=== PATIENT | male | born 1950 | race Caucasian/White ===

== ENCOUNTER 2016-10-05 18:32 | Emergency (ER) | payer OTHER, MEDICARE ==
--- NOTE | 2016-10-05 18:45 | ER Document Report ---
ED Extremity Problem, Lower - General Chief Complaint: Knee Pain Stated Complaint: KNEE PAIN Time Seen by Provider: 10/05/16 18:39 Mode of Arrival: Stretcher Information source: Patient TRAVEL OUTSIDE OF THE U.[place]. IN LAST 30 DAYS: No - HPI Patient complains to provider of: Injury, Pain, Swelling Location: Knee Occurred: Just prior to arrival Where: Public place Onset/Duration: Sudden Quality of pain: Achy Severity: Moderate Pain Level: 3 Context: Fell Recent injury: Yes Exacerbated by: Movement Relieved by: Nothing Notes: Patient is a 66-year-old male who is currently incarcerated, he was brought to the emergency room by EMS with law enforcement present, for complaints of trip and fall causing an injury to his right hip and right knee, he denies a head injury or loss of consciousness, although EMS reports that he was found on the floor with his head wedged between the bathtub and the toilet, patient denies any headache, no neck pain, no numbness or tingling, no chest pain or shortness of breath - Related Data Allergies/Adverse Reactions: No Known Allergies Allergy (Verified 03/29/15 01:00) Past Medical History - General Information source: Patient - Social History Smoking Status: Unknown if Ever Smoked Family History: Arthritis, CAD, CVA, Hyperlipidemia, Hypertension - Past Medical History Cardiac Medical History: Reports: Hx Coronary Artery Disease, Hx Heart Attack - 2007, Hx Hypercholesterolemia, Hx Hypertension - Goes to a local urgent care for his medicine Denies: Hx Atrial Fibrillation, Hx Congestive Heart Failure, Hx Peripheral Vascular Disease, Hx Heart Murmur Pulmonary Medical History: Reports: Hx Bronchitis, Hx Pneumonia Denies: Hx Tuberculosis Neurological Medical History: Reports: Hx Cerebrovascular Accident Endocrine Medical History: Reports: Hx Diabetes Mellitus Type 2 Renal/ Medical History: Reports: Hx Kidney Stones - 1979, 1986. Denies: Hx Benign Prostatic Hyperplasia, Hx End Stage Renal Disease, Hx Peritoneal Dialysis Malignancy Medical History: Reports Hx Skin Cancer Musculoskeltal Medical History: Reports Hx Musculoskeletal Deformity, Reports Hx Musculoskeletal Trauma Past Surgical History: Reports: Hx Cardiac Catheterization, Hx Coronary Stent. Denies: Hx Appendectomy, Hx Bowel Surgery, Hx Cholecystectomy, Hx Coronary Artery Bypass Graft, Hx Gastric Bypass Surgery, Hx Herniorrhaphy, Hx Pacemaker, Hx Tonsillectomy - Immunizations Immunizations up to date: Yes Hx Diphtheria, Pertussis, Tetanus Vaccination: Yes - 2013 Hx Pneumococcal Vaccination: 12/21/11 Review of Systems - Review of Systems Constitutional: No symptoms reported EENT: No symptoms reported Cardiovascular: No symptoms reported Respiratory: No symptoms reported Gastrointestinal: No symptoms reported Genitourinary: No symptoms reported Male Genitourinary: No symptoms reported Musculoskeletal: See HPI Skin: No symptoms reported Hematologic/Lymphatic: No symptoms reported Neurological/Psychological: No symptoms reported -: Yes All other systems reviewed and negative Physical Exam - Vital signs Vitals: Temp Pulse Resp BP Pulse Ox 98.3 F 75 18 111/60 100 10/05/16 18:42 10/05/16 18:42 10/05/16 18:42 10/05/16 18:42 10/05/16 18:42 Interpretation: Normal - General General appearance: Appears well, Alert - HEENT Head: Normocephalic, Atraumatic Eyes: Normal Pupils: PERRL - Respiratory Respiratory status: No respiratory distress Chest status: Nontender Breath sounds: Normal Chest palpation: Normal - Cardiovascular Rhythm: Regular Heart sounds: Normal auscultation Murmur: No - Abdominal Inspection: Normal Distension: No distension Bowel sounds: Normal Tenderness: Nontender Organomegaly: No organomegaly - Back Back: Normal, Nontender - Extremities General upper extremity: Normal inspection, Nontender, Normal color, Normal ROM , Normal temperature General lower extremity: Normal color, Normal temperature. No: Aiden's sign Hip: Tender - Patient reports tenderness to palpate over lateral hip and thigh, no deformity, distal sensation and motor is intact Knee: Tender - Tender to palpate over patella of the right knee, patient reports pain with range of motion testing, distal sensation and motor is intact with 2+ DP pulses - Neurological Neuro grossly intact: Yes Cognition: Normal Orientation: AAOx4 Gael Coma Scale Eye Opening: Spontaneous [place] Coma Scale Verbal: Oriented Gael Coma Scale Motor: Obeys Commands [place] Coma Scale Total: 15 Speech: Normal Motor strength normal: LUE, RUE, LLE, RLE Sensory: Normal - Psychological Associated symptoms: Normal affect, Normal mood - Skin Skin Temperature: Warm Skin Moisture: Dry Skin Color: Normal Course - Re-evaluation Re-evalutation: 10/05/16 20:09 Imaging shows no evidence of injury, patient was able to ambulate with assistance, he was discharged with instructions for follow-up and advised to return if any additional concerns - Vital Signs Vital signs: Temp Pulse Resp BP Pulse Ox 98.3 F 75 18 111/60 100 10/05/16 18:42 10/05/16 18:42 10/05/16 18:42 10/05/16 18:42 10/05/16 18:42 - Diagnostic Test Radiology reviewed: Image reviewed, Reports reviewed Discharge - Discharge Clinical Impression: Contusion of knee, right Qualifiers: Encounter type: initial encounter Qualified Code(s): S80.01XA - Contusion of right knee, initial encounter Condition: Stable Disposition: HOME, SELF-CARE Instructions: Ice & Elevation ([facility]), Suspected Internal Knee Injury ([facility]), Sprained Knee ([facility]) Additional Instructions: Follow up with your primary care provider in one to 2 days. Return to the emergency room immediately if symptoms worsen or any additional concerns.
--- NOTE | 2016-10-05 19:43 | RADIOLOGY REPORT (SQ) ---
EXAM DESCRIPTION: HIP RIGHT AP/LATERAL COMPLETED DATE/TIME: 10/05/2016 7:30 pm REASON FOR STUDY: fall COMPARISON: None. NUMBER OF VIEWS: Two views. TECHNIQUE: AP pelvis and additional frog-leg view of the right hip. LIMITATIONS: None. FINDINGS: MINERALIZATION: Normal. RIGHT HIP: No fracture or dislocation. No worrisome bone lesions. LEFT HIP: No fracture or dislocation. No worrisome bone lesions. PUBIS AND ISCHIUM: No fracture. PELVIS: No fracture. SACRUM: No fracture or dislocation. No worrisome bone lesions. LOWER LUMBAR SPINE: No fracture or dislocation. No worrisome bone lesions. No significant disc disea se. SOFT TISSUES: No findings. OTHER: No other significant finding. IMPRESSION: NEGATIVE STUDY OF THE RIGHT HIP. NO RADIOGRAPHIC EVIDENCE OF ACUTE INJURY. TECHNICAL DOCUMENTATION: JOB ID: [id number] [employer]- All Rights Reserved
--- NOTE | 2016-10-05 19:44 | RADIOLOGY REPORT (SQ) ---
EXAM DESCRIPTION: KNEE RIGHT 3 VIEWS COMPLETED DATE/TIME: 10/05/2016 7:30 pm REASON FOR STUDY: fall COMPARISON: None. NUMBER OF VIEWS: Three views TECHNIQUE: AP, lateral, and sunrise patella radiographic images acquired of the right knee. LIMITATIONS: None. FINDINGS: MINERALIZATION: Normal. BONES: No acute fracture or dislocation. No worrisome bone lesions. JOINT: No effusion. SOFT TISSUES: No soft tissue swelling. No radio-opaque foreign body. OTHER: No other significant finding. IMPRESSION: NEGATIVE STUDY OF THE RIGHT KNEE. NO RADIOGRAPHIC EVIDENCE OF ACUTE INJURY. TECHNICAL DOCUMENTATION: JOB ID: [id number] [employer]- All Rights Reserved
[2016-10-05] MEDS ORDERED: IBUPROFEN 600 MG TABLET PO ONE (19:52)
[2016-10-05 20:33] VITALS: BP 129/72
== END 2016-10-05 20:05 | disposition home or self-care (01) ==
LOC: ER 18:32
DX: S80.01XA Contusion of right knee, initial encounter (principal); M25.561 Pain in right knee; W19.XXXA Unspecified fall, initial encounter
CPT/HCPCS: 99283; 73502; 73562; A9270

== ENCOUNTER 2017-09-10 15:35 | Observation (INO) | payer MEDICARE, OTHER ==
--- NOTE | 2017-09-10 16:14 | ER Document Report ---
ED General - General Mode of Arrival: Ambulatory Information source: Patient TRAVEL OUTSIDE OF THE U.S. IN LAST 30 DAYS: No <REID UMANZOR - Last Filed: 09/10/17 17:23> <JUAN BAIN - Last Filed: 09/10/17 18:26> - General Chief Complaint: Other Stated Complaint: ALTERED MENTAL STATUS Time Seen by Provider: 09/10/17 15:50 Notes: 67-year-old male presenting today with complaints of possible altered mental status. [facility] and has no place to go according to EMS. Patient had a CVA while incarcerated and has residual right- sided weakness and is unable to stand; [facility]. Patient has no complaints at this time. (REID UMANZOR) - Related Data Allergies/Adverse Reactions: No Known Allergies Allergy (Verified 03/29/15 01:00) Past Medical History - General Information source: Patient - Social History Smoking Status: Unknown if Ever Smoked Cigarette use (# per day): No Frequency of alcohol use: None Drug Abuse: None Lives with: Family Family History: Arthritis, CAD, CVA, Hyperlipidemia, Hypertension - Past Medical History Cardiac Medical History: Reports: Hx Coronary Artery Disease, Hx Heart Attack - 2007, Hx Hypercholesterolemia, Hx Hypertension - Goes to a local urgent care for his medicine Pulmonary Medical History: Reports: Hx Bronchitis, Hx Pneumonia Neurological Medical History: Reports: Hx Cerebrovascular Accident Endocrine Medical History: Reports: Hx Diabetes Mellitus Type 2 Renal/ Medical History: Reports: Hx Kidney Stones - 1979, 1986 Malignancy Medical History: Reports Hx Skin Cancer Musculoskeltal Medical History: Reports Hx Musculoskeletal Deformity, Reports Hx Musculoskeletal Trauma Past Surgical History: Reports: Hx Cardiac Catheterization, Hx Coronary Stent - Immunizations Immunizations up to date: Yes Hx Diphtheria, Pertussis, Tetanus Vaccination: Yes - 2013 Hx Pneumococcal Vaccination: 12/21/11 <REID UMANZOR - Last Filed: 09/10/17 17:23> Review of Systems - Review of Systems Constitutional: No symptoms reported EENT: No symptoms reported Cardiovascular: No symptoms reported Respiratory: No symptoms reported Gastrointestinal: No symptoms reported Genitourinary: No symptoms reported Male Genitourinary: No symptoms reported Musculoskeletal: No symptoms reported Skin: No symptoms reported Hematologic/Lymphatic: No symptoms reported Neurological/Psychological: No symptoms reported -: Yes All other systems reviewed and negative <REID UMANZOR - Last Filed: 09/10/17 17:23> Physical Exam <REID UMANZOR - Last Filed: 09/10/17 17:23> <JUAN BAIN - Last Filed: 09/10/17 18:26> - Vital signs Vitals: Temp Pulse Resp BP Pulse Ox 98.3 F 99 16 107/60 94 09/10/17 15:51 09/10/17 15:51 09/10/17 15:51 09/10/17 15:51 09/10/17 15:51 - Notes Notes: Physical Exam: General: Alert, appears frail and older than stated age. HEENT: Normocephalic. Atraumatic. PERRL. Extraocular movements intact. Oropharynx clear. Neck: Supple. Non-tender. Respiratory: No respiratory distress. Clear and equal breath sounds bilaterally. Cardiovascular: Regular rate and rhythm. Abdominal: Normal Inspection. Non-tender. No distension. Normal Bowel Sounds. Back: Non-tender. No deformity or step off. Extremities: Moves all four extremities. Upper extremities: Normal inspection. Normal ROM. Lower extremities: Normal inspection. No edema. Normal ROM. Neurological: Normal cognition. AAOx4. Slow to respond. Right sided hemiparesis. Psychological: Normal affect. Normal Mood. Skin: Superficial abrasion over right mello. (ERNAMARTHAREID) Course - Laboratory Result Diagrams: 09/10/17 16:52 09/10/17 16:52 <REID UMANZOR - Last Filed: 09/10/17 17:23> - Laboratory Result Diagrams: 09/10/17 16:52 09/10/17 16:52 - Diagnostic Test Radiology reviewed: Image reviewed - EKG Interpretation by Hi EKG shows normal: Sinus rhythm Rate: Normal Rhythm: NSR - Unspecific ST-T wave abnormalities <JUAN BAIN - Last Filed: 09/10/17 18:26> - Re-evaluation Re-evalutation: 09/10/17 18:20 Patient will be admitted for clinical signs of dehydration and altered mental status concerns for normal pressure hydrocephalus and hyperthyroidism. (JUAN BAIN) - Vital Signs Vital signs: Temp Pulse Resp BP Pulse Ox 98.3 F 99 16 107/60 94 09/10/17 15:51 09/10/17 15:51 09/10/17 15:51 09/10/17 15:51 09/10/17 15:51 - Laboratory Laboratory results interpreted by me: 09/10/17 09/10/17 09/10/17 16:52 16:52 16:52 RBC 4.10 L Hgb 12.0 L Hct 35.8 L BUN 32 H Glucose 136 H POC Glucose Ammonia < 8.7 L TSH Urine Urobilinogen Urine Ascorbic Acid Salicylates < 1.0 L Acetaminophen < 10 L 09/10/17 09/10/17 09/10/17 16:52 16:54 17:22 RBC Hgb Hct BUN Glucose POC Glucose 147 H Ammonia TSH 0.04 L Urine Urobilinogen 2.0 H Urine Ascorbic Acid 40 H Salicylates Acetaminophen Discharge <REID UMANZOR - Last Filed: 09/10/17 17:23> - Discharge Admitting Provider: [facility] Admitted: IMCU <JUAN BAIN - Last Filed: 09/10/17 18:26> - Discharge Clinical Impression: Dehydration, Acute encephalopathy, Hyperthyroidism Disposition: ADMITTED INPATIENT Scribe Attestation: 09/10/17 16:36 I personally performed the services described in the documentation, reviewed and edited the documentation which was dictated to the scribe in my presence, and it accurately records my words and actions. (REID UMANZOR) Scribe Documentation - Scribe Written by Nathaly:: Nathaly Guevara, 09/10/2017 1726 acting as scribe for :: Dino <REID UMANZOR - Last Filed: 09/10/17 17:23>
[2017-09-10 17:10] LABS: ABSOLUTE EOSINOPHILS # (AUTO) 0.1 10^3/uL (0.0-0.6); ABSOLUTE LYMPHOCYTES (AUTO) 2.4 10^3/uL (0.5-4.7); ABSOLUTE MONOCYTES (AUTO) 0.6 10^3/uL (0.1-1.4); ABSOLUTE NEUT (AUTO) 4.8 10^3/uL (1.7-8.2); BASOPHILS % (AUTO) 0.5 % (0-2); EOSINOPHILS % (AUTO) 1.2 % (0-6); HEMATOCRIT 35.8 % (37.9-51.0); LYMPHOCYTES % (AUTO) 30.3 % (13-45); MEAN CORPUSCULAR HEMOGLOBIN 29.4 pg (27.0-33.4); MEAN CORPUSCULAR HGB CONC 33.6 g/dL (32.0-36.0); MEAN CORPUSCULAR VOLUME 87 fl (80-97); MONOCYTES % (AUTO) 7.1 % (3-13); PLATELET COUNT 240 10^3/uL (150-450); RED CELL DISTRIBUTION WIDTH 13.2 % (11.5-14.0); SEGMENTED NEUTROPHILS % (AUTO) 60.9 % (42-78); TOTAL CELLS COUNTED % (AUTO) 100 %; WHITE BLOOD COUNT 7.9 10^3/uL (4.0-10.5)
[2017-09-10 17:15] LABS: INTERNATIONAL RATION (INR) 1.03
[2017-09-10 17:33] LABS: ACETAMINOPHEN < 10 ug/mL (10-30); ALANINE AMINOTRANSFERASE 25 U/L (21-72); ALBUMIN 3.6 g/dL (3.5-5.0); ALCOHOL < 10 mg/dL (NONE DETECTED); ALKALINE PHOSPHATASE 78 U/L (38-126); ANION GAP 11 (5-19); ASPARTATE AMINO TRANSFERASE 17 U/L (17-59); BILIRUBIN,DIRECT 0.3 mg/dL (0.0-0.4); BILIRUBIN,TOTAL 0.3 mg/dL (0.2-1.3); BLOOD UREA NITROGEN 32 mg/dL (7-20); CALCIUM 9.5 mg/dL (8.4-10.2); CARBON DIOXIDE 27 mmol/L (22-30); CHLORIDE 107 mmol/L (98-107); GLUCOSE 136 mg/dL (75-110); LIPASE 37.4 U/L (23-300); POTASSIUM 4.6 mmol/L (3.6-5.0); SALICYLATE < 1.0 mg/dL (2.0-20.0); SODIUM 144.5 mmol/L (137-145); TOTAL PROTEIN 6.4 g/dL (6.3-8.2)
--- NOTE | 2017-09-10 17:49 | RADIOLOGY REPORT (SQ) ---
EXAM DESCRIPTION: CT HEAD WITHOUT COMPLETED DATE/TIME: 09/10/2017 4:26 pm REASON FOR STUDY: ams COMPARISON: 2014 TECHNIQUE: Axial images acquired through the brain without intravenous contrast. Images reviewed wi th bone, brain and subdural windows. Additional sagittal and coronal reconstructions were generated. Images stored on PACS. All CT scanners at this facility use dose modulation, iterative reconstruction, and/or weight based d osing when appropriate to reduce radiation dose to as low as reasonably achievable (ALARA). [facility]: Dose Right [facility]: CareDose [facility]: Dose Right [facility]: Teradose 4D [facility]: Into The Gloss RADIATION DOSE: mGy. LIMITATIONS: None. FINDINGS: VENTRICLES: More prominent than expected for degree of atrophy. Suggests normal pressure hydrocephalus. CEREBRUM: No masses. No hemorrhage. No midline shift. Areas of low density in the white matter mos t likely due to chronic micro-vascular ischemic change. No evidence for acute infarction. Old lac[place] ar infarcts. CEREBELLUM: No masses. No hemorrhage. No alteration of density. No evidence for acute infarction. EXTRAAXIAL SPACES: Age-related involutional change. No fluid collections. No masses. ORBITS AND GLOBE: No intra- or extraconal masses. Normal contour of globe without masses. CALVARIUM: No fracture. PARANASAL SINUSES: No fluid or mucosal thickening. SOFT TISSUES: No mass or hematoma. OTHER: No other significant finding. IMPRESSION: CHRONIC CHANGES OF ATROPHY AND MICROVASCULAR ISCHEMIA. Question normal pressure hydrocephalus. NO ACUTE PROCESS. EVIDENCE OF ACUTE STROKE: NO. TECHNICAL DOCUMENTATION: JOB ID: [id number] Quality ID # [id number]: Final reports with documentation of one or more dose reduction techniques (e.g., Au tomated exposure control, adjustment of the mA and/or kV according to patient size, use of iterative reconstruction technique) 2010 [employer]- All Rights Reserved Reading location - IP/workstation name: [email or web address]
--- NOTE | 2017-09-10 17:53 | RADIOLOGY REPORT (SQ) ---
EXAM DESCRIPTION: CHEST SINGLE VIEW COMPLETED DATE/TIME: 09/10/2017 4:25 pm REASON FOR STUDY: ams COMPARISON: 07/04/2015 EXAM PARAMETERS: NUMBER OF VIEWS: One view. TECHNIQUE: Single frontal radiographic view of the chest acquired. RADIATION DOSE: NA LIMITATIONS: None. FINDINGS: LUNGS AND PLEURA: No opacities, masses or pneumothorax. No pleural effusion. MEDIASTINUM AND HILAR STRUCTURES: No masses. Contour normal. HEART AND VASCULAR STRUCTURES: Heart normal in size. Normal vasculature. BONES: No acute findings. HARDWARE: None in the chest. OTHER: No other significant finding. IMPRESSION: NO ACUTE RADIOGRAPHIC FINDING IN THE CHEST. TECHNICAL DOCUMENTATION: JOB ID: [id number] [employer]- All Rights Reserved Reading location - IP/workstation name: [email or web address]
[2017-09-10 18:12] LABS: APPEARANCE,URINE SLIGHTLY-CLOUDY; BILIRUBIN,URINE NEGATIVE (NEGATIVE); CALCIUM OXALATE CRYSTALS,URINE FEW /HPF; COLOR,URINE YELLOW; GLUCOSE, URINE NEGATIVE (NEGATIVE); KETONES,URINE NEGATIVE (NEGATIVE); LEUKOCYTE ESTERASE,URINE NEGATIVE (NEGATIVE); NITRITE,URINE NEGATIVE (NEGATIVE); PROTEIN,URINE NEGATIVE (NEGATIVE); URINE SPECIFIC GRAVITY 1.021
[2017-09-10] MEDS ORDERED: ACETAMINOPHEN 325 MG TABLET PO PRN (18:19)
[2017-09-10 18:32] LABS: URINE AMPHETAMINES SCREEN NEGATIVE; URINE BARBITURATES SCREEN NEGATIVE; URINE BENZODIAZEPINES SCREEN NEGATIVE; URINE COCAINE SCREEN NEGATIVE; URINE MARIJUANA (THC) SCREEN NEGATIVE; URINE METHADONE SCREEN NEGATIVE; URINE PHENCYCLIDINE SCREEN NEGATIVE
[2017-09-10 19:35] LABS: FREE T3 4.52 pg/mL (2.77-5.27); FREE T4 (FREE THYROXINE) 1.36 ng/dL (0.78-2.19)
--- NOTE | 2017-09-10 20:00 | HISTORY AND PHYSICAL E ---
History and Physical NAME: KANNAN ODELL : 1950 AGE: 67Y ADMITTED: 09/10/2017 ROOM: ED03 PRIMARY CARE PROVIDER: Not established. CHIEF COMPLAINT: Confusion. HISTORY OF PRESENT ILLNESS: The patient is a 67-year-old male with a past medical history of previous CVA. The patient presented to the emergency department via EMS due to altered mental status. The patient apparently had had a recent CVA while incarcerated and has residual right-sided weakness and has been unable to stand. The patient apparently was [facility] and the patient was recently released. After this the patient's is in the process of getting a divorce and, therefore, has not cared for the patient. The patient is unable to provide any history and at this time of this dictation EMS report is not available. I am uncertain of the exact circumstances that brought the patient to the hospital or where he was when EMS picked him up. However, the patient is unable to provide me any history. While in the emergency department the patient did have a CT that was suggestive of NPH as the differential as well as possible hyperthyroidism. Given the patient's encephalopathic state and his inability to provide any history he has been referred to the hospitalist for admission and management. PAST MEDICAL HISTORY: According to previous medical records includes; 1. Diabetes mellitus type 2. 2. History of tobacco dependency. 3. Hypertension. 4. Cerebrovascular disease. ALLERGIES: No known drug allergies. HOME MEDICATIONS: None. SOCIAL HISTORY: The patient has a recorded history of heavy tobacco use, as well as alcohol use. The patient is unable to give a surrogate decision maker as his is estranged. The patient at this date appears homeless. FAMILY MEDICAL HISTORY: Unobtainable. REVIEW OF SYSTEMS: Unobtainable. PHYSICAL EXAMINATION: GENERAL: On examination the patient is a frail appearing, 67-year-old male who will awaken and groans, but does not provide any history. He does not appear to be distressed, does appear comfortable. VITAL SIGNS: Temperature is 98.3, pulse 99, respirations 16, blood pressure 107/60, oxygen saturation is 94% on room air. SKIN: Pale and very dry; no obvious rash. He is not diaphoretic. HEENT: The patient vigorously closes his eyes, unable to appreciate americo. There is no evidence of JVP. Mucous membranes appear dry. Unable to appreciate thyromegaly. CARDIOVASCULAR: Heart is regular. There is no rub. CHEST: Diminished, symmetrical, unlabored. Evidence of barrel chest. ABDOMEN: Soft, it does not appear to be tender. Bowel sounds are present. Unable to appreciate organomegaly. EXTREMITIES: No clubbing, cyanosis, or edema. Pedal pulses +1 noted bilaterally. PSYCHIATRIC: The patient is unable to cooperate. NEUROLOGIC: The patient is not fully cooperative. However, when I asked him to squeeze my hands, his right hand appears flaccid. The left hand does have a very strong hip hop performers. Unable to get the patient to perform lower extremity examination. DIAGNOSTICS: Lab values are as follows - hematology obtained on 09/10/2017; WBC 7.9, hemoglobin is 12.0, hematocrit is 38.5, platelet count is 240,000. Coagulation obtained on 09/10/2017; PT is 14.0, INR is 1.03. Chemistry obtained on 09/10/2017; sodium 144, potassium 4.6, chloride is 107, carbon dioxide 27, BUN 32, creatinine is 1.7, glucose 136, calcium is 9.5, magnesium is 3.1, bilirubin 0.3, AST 17, ALT is 25, alk-phos 78, total protein 6.4, albumin 3.6, lipase 37.6. T4 is 0.04. Urinalysis obtained on 09/10/2017; color yellow, appearance slightly cloudy, pH is 5.0, specific gravity 1.021, protein negative, glucose negative, ketones negative, occult blood negative, nitrite negative, bilirubin negative, urobilinogen is 2, leukocyte esterase is negative, WBC is 2. Head CT obtained on 09/10/2017 is suggestive of chronic changes in vascular and microvascular ischemia, possible NPH. Chest x-ray obtained on 09/10/2017 reveals no evidence of acute disease. IMPRESSION AND PLAN: 1. Acute encephalopathy. Unable to get a history on this at this point. This is perplexing given the patient is poorly responsive, currently awaiting tox screen. We will also add B12 and proceed with ischemic workup to include MRI given the patient's history of cerebrovascular disease. Will start the patient on aspirin and statin therapy, so forth, and follow. 2. Cerebrovascular disease, as per #1. 3. Low TSH. We will add on T3, T4, and treat accordingly. 4. Abnormal CT of the head. It was suggestive as NPH as one of differentials. Given the patient's history of heavy alcohol use this could just be atrophy. However, possible MRI imaging will give better view of this. 5. Hypertension. The patient actually appears hypotensive and has evidence of dehydration. Therefore, will hydrate and monitor. 6. Diabetes mellitus type 2. Will place the patient on sliding scale coverage. CODE STATUS: The patient is a full code. DISPOSITION: Depending on the patient's symptomatology and diagnostic findings will reevaluate in the a.m. Will admit the patient to inpatient IMCU as the patient's expected length of stay will surpass two midnights. TIME SPENT: On this admission including assessment, plan, physical examination, attended to patient education, review of records is 35 minutes. DICTATING PHYSICIAN: CHRISTIANO HANKINS [id number] PHY#: [id number] ID: [id number] JOB#: [id number] ACCT: [id number] cc:RADHA CARPENTER M.D. >
[2017-09-10] MEDS: ATORVASTATIN CALCIUM 40 MG TABLET PO SCH (22:24)
[2017-09-10] MEDS: HEPARIN SOD (PORCINE) 5,000 UNIT/ML 1 ML SYRINGE SUBCUT SCH (22:28)
[2017-09-10] MEDS: NORMAL SALINE 1000 ML 1,000 ML IV PRN (22:31)
[2017-09-11] MEDS ORDERED: GLUCAGON,HUMAN RECOMB 1 MG INJ SUBCUT PRN (01:17)
[2017-09-11] MEDS ORDERED: DEXTROSE 40% GEL 15 GM TUBE PO PRN ×2 (01:17)
[2017-09-11] MEDS ORDERED: DEXTROSE 50%-WATER 25 GM/50 ML DISP.SYRIN IV PRN ×2 (01:17)
[2017-09-11] MEDS: HEPARIN SOD (PORCINE) 5,000 UNIT/ML 1 ML SYRINGE SUBCUT SCH ×3 (05:14→21:07)
--- NOTE | 2017-09-11 06:06 | EKG REPORT ---
SEVERITY:- ABNORMAL ECG - SINUS RHYTHM BORDERLINE INFERIOR Q WAVES , CONSIDER OLD INFERIOR FL : Confirmed by: Donovan Becker MD 11-Sep-2017 06:05:55
[2017-09-11] MEDS: ASPIRIN 81 MG TABLET, ENT COATED PO SCH (09:18)
--- NOTE | 2017-09-11 12:47 | PDOC PROGRESS REPORT ---
Subjective Progress Note for:: 09/11/17 Subjective:: She is a 67 years old male patient brought by EMS for altered mental status. Patient is a recently released from incarceration. I seen him resting in bed comfortably is not impairing her renal form of distress. He is awake alert and oriented. Reason For Visit: ENCEPHALOPATHY Physical Exam Vital Signs: Temp Pulse Resp BP Pulse Ox 98.6 F 80 14 112/49 L 97 09/11/17 07:55 09/11/17 08:00 09/11/17 08:00 09/11/17 08:00 09/11/17 08:00 Intake & Output 09/10/17 09/11/17 09/12/17 06:59 06:59 06:59 Intake Total 500 Output Total 0 Balance 500 Weight 59.6 kg General appearance: PRESENT: no acute distress Head exam: PRESENT: atraumatic Mouth exam: PRESENT: moist Neck exam: ABSENT: carotid bruit, JVD, lymphadenopathy, thyromegaly Cardiovascular exam: PRESENT: RRR. ABSENT: diastolic murmur, rubs, systolic murmur GI/Abdominal exam: PRESENT: normal bowel sounds, soft. ABSENT: distended, guarding, mass, organolmegaly, rebound, tenderness Neurological exam: PRESENT: alert, awake, oriented to time, oriented to situation Results Impressions: Chest X-Ray 09/10/17 15:51 IMPRESSION: NO ACUTE RADIOGRAPHIC FINDING IN THE CHEST. Head CT 09/10/17 15:51 IMPRESSION: CHRONIC CHANGES OF ATROPHY AND MICROVASCULAR ISCHEMIA. Question normal pressure hydrocephalus. NO ACUTE PROCESS. EVIDENCE OF ACUTE STROKE: NO. Assessment & Plan - Diagnosis (1) Altered mental status Qualifiers: Altered mental status type: disorientation Qualified Code(s): R41.0 - Disorientation, unspecified Is this a current diagnosis for this admission?: Yes Plan: Possibly due to metabolic encephalopathy. Patient is currently stable and is at his baseline (2) Type 2 diabetes mellitus Is this a current diagnosis for this admission?: Yes Plan: Stable continue current regimen. (3) Hypertension Is this a current diagnosis for this admission?: Yes Plan: Continue home meds. (4) History of CVA (cerebrovascular accident) Is this a current diagnosis for this admission?: Yes Plan: Stable.
--- NOTE | 2017-09-11 12:57 | Physician Advisory Note ---
Physician Advisor ProgressNote .: Pursuant to the plan for [facility], I have reviewed the medical record for this patient. Physician Advisor Statement: Please consider documenting, if you agree: 1. "Rt hemiparesis" (dominant, or nondominant, side?) 2. "dysphagia with water" 3. likely type/cause encephalopathy ( "metabolic encephalopathy due to dehydration/ "? "toxic encephalopathy due to [substance]"? ...) & how he is different from his [likely] baseline (as we learn more about that....) 4. Medical necessity: VERY IMPORTANT to make it clear today the CLINICAL reasons pt still needs to be in hospital, what CONCERNS attending - besides his homelessness & inability to care for self. (see below) Status: 67yo Medicare pt w/CAD/prior CO & stent, HTN, HLD, DM-2, recent CVA w/ Rt dom/non-dom hemiparesis, kidney stones, skin CA, tobacco dependence, prior EtOH, presented w/[facility] with slowness to respond, inability to give any hx himself ("will awaken and groan, but not give any hx", "pt poorly responsive"), not fully cooperative w/exam, with evident dehydration, residual Rt hemiparesis , very low TSH, anemia, CT head suggestive of possible NPH. He is incontinent of urine. - So far, all of this sounds most appropriate for Obs status (& if he simply has no place to go, needing [facility] care, and that is why he is being kept here, then he should not be Inpatient.) However, nursing has documented he failed nursing water swallow screen, so is currently NPO, needing IVF. Additionally, today they report "small amt of bloody d/c from urethra". Today, nursing documents pt is "oriented to person & place", though "confused", speech "delayed", thinking "disorganized & disoriented", cough intermittent - so he must be speaking some this AM, & may have some aspiration. (see #4 above) - If any of this, or other clinical issues, concern attending, who documents accordingly, then appropriate for Inpatient status. Thanks! CK
[2017-09-11] MEDS: NORMAL SALINE 1000 ML 1,000 ML IV PRN (15:12)
[2017-09-11] MEDS: ATORVASTATIN CALCIUM 40 MG TABLET PO SCH (21:07)
[2017-09-12] MEDS: HEPARIN SOD (PORCINE) 5,000 UNIT/ML 1 ML SYRINGE SUBCUT SCH ×3 (05:09→22:02)
[2017-09-12] MEDS: ASPIRIN 81 MG TABLET, ENT COATED PO SCH (09:37)
[2017-09-12] MEDS: NORMAL SALINE 1000 ML 1,000 ML IV PRN (09:37)
[2017-09-12] MEDS ORDERED: LISINOPRIL 5 MG TABLET PO ONE (11:00)
[2017-09-12] MEDS ORDERED: CHOLECALCIFEROL (D3) 1,000 UNIT TABLET PO ONE (11:00)
--- NOTE | 2017-09-12 11:33 | PDOC PROGRESS REPORT ---
Subjective Subjective:: I seen patient resting in bed comfortably. He is awake alert is not in pain or any form of distress. Patient brought by EMS for altered mental status currently patient is at his baseline. This morning I reached his brother and I discussed the patient's condition and I told him patient is ready for discharge but he said there is no place to send him and he directs me to contact his sister who is in charge. I tried to get hold of patient's sister but she does not answer. Reason For Visit: ALTERED MENTAL STATUS Physical Exam Vital Signs: Temp Pulse Resp BP Pulse Ox 98.7 F 58 L 14 101/78 100 09/12/17 07:28 09/12/17 07:28 09/12/17 07:28 09/12/17 07:28 09/12/17 07:28 Intake & Output 09/11/17 09/12/17 09/13/17 06:59 06:59 06:59 Intake Total 500 2251 Output Total 0 Balance 500 2251 Weight 59.6 kg 59.4 kg General appearance: PRESENT: no acute distress, well-developed, well-nourished Head exam: PRESENT: atraumatic, normocephalic Eye exam: PRESENT: conjunctiva pink, EOMI, PERRLA. ABSENT: scleral icterus Ear exam: PRESENT: normal external ear exam Mouth exam: PRESENT: moist, tongue midline Neck exam: ABSENT: carotid bruit, JVD, lymphadenopathy, thyromegaly Respiratory exam: PRESENT: clear to auscultation earline. ABSENT: rales, rhonchi, wheezes Cardiovascular exam: PRESENT: RRR. ABSENT: diastolic murmur, rubs, systolic murmur Pulses: PRESENT: normal dorsalis pedis pul Vascular exam: PRESENT: normal capillary refill GI/Abdominal exam: PRESENT: normal bowel sounds, soft. ABSENT: distended, guarding, mass, organolmegaly, rebound, tenderness Rectal exam: PRESENT: deferred Extremities exam: PRESENT: full ROM. ABSENT: calf tenderness, clubbing, pedal edema Neurological exam: PRESENT: alert, awake, oriented to person, oriented to place , oriented to time, oriented to situation. ABSENT: motor sensory deficit Psychiatric exam: PRESENT: appropriate affect, normal mood. ABSENT: homicidal ideation, suicidal ideation Skin exam: PRESENT: dry, intact, warm. ABSENT: cyanosis, rash Results Impressions: Chest X-Ray 09/10/17 15:51 IMPRESSION: NO ACUTE RADIOGRAPHIC FINDING IN THE CHEST. Head CT 09/10/17 15:51 IMPRESSION: CHRONIC CHANGES OF ATROPHY AND MICROVASCULAR ISCHEMIA. Question normal pressure hydrocephalus. NO ACUTE PROCESS. EVIDENCE OF ACUTE STROKE: NO. Assessment & Plan - Diagnosis (1) Altered mental status Qualifiers: Altered mental status type: disorientation Qualified Code(s): R41.0 - Disorientation, unspecified Is this a current diagnosis for this admission?: Yes Plan: Possibly due to metabolic encephalopathy. Patient is currently stable and is at his baseline (2) Type 2 diabetes mellitus Is this a current diagnosis for this admission?: Yes Plan: Controlled. I restarted him his home metformin (3) Hypertension Is this a current diagnosis for this admission?: Yes Plan: Continue home meds. (4) History of CVA (cerebrovascular accident) Is this a current diagnosis for this admission?: Yes Plan: Stable.
[2017-09-12] MEDS: LANSOPRAZOLE 15 MG TAB.RAP.DR PO SCH (17:48)
[2017-09-12] MEDS: METFORMIN HCL 500 MG TABLET PO SCH (17:48)
[2017-09-12] MEDS ORDERED: INSULIN LISPRO 100 UNIT/ML 3 ML VIAL SUBCUT PRN (17:52)
[2017-09-12] MEDS: ATORVASTATIN CALCIUM 40 MG TABLET PO SCH (22:02)
[2017-09-12] MEDS: TAMSULOSIN HCL 0.4 MG CAP.SR.24H PO SCH (22:02)
[2017-09-13 05:42] LABS: ANION GAP 8 (5-19); BLOOD UREA NITROGEN 26 mg/dL (7-20); CALCIUM 8.6 mg/dL (8.4-10.2); CARBON DIOXIDE 24 mmol/L (22-30); CHLORIDE 112 mmol/L (98-107); GLUCOSE 88 mg/dL (75-110); POTASSIUM 4.1 mmol/L (3.6-5.0); SODIUM 144.2 mmol/L (137-145)
[2017-09-13] MEDS: HEPARIN SOD (PORCINE) 5,000 UNIT/ML 1 ML SYRINGE SUBCUT SCH ×3 (05:49→21:51)
[2017-09-13] MEDS: LANSOPRAZOLE 15 MG TAB.RAP.DR PO SCH ×2 (05:49→17:36)
[2017-09-13] MEDS: MULTIVITAMIN TABLET PO SCH (09:01)
[2017-09-13] MEDS: LISINOPRIL 5 MG TABLET PO SCH (09:01)
[2017-09-13] MEDS: METFORMIN HCL 500 MG TABLET PO SCH ×2 (09:02→17:36)
[2017-09-13] MEDS: ASPIRIN 81 MG TABLET, ENT COATED PO SCH (09:02)
[2017-09-13] MEDS: CHOLECALCIFEROL (D3) 1,000 UNIT TABLET PO SCH (09:02)
[2017-09-13] MEDS: NORMAL SALINE 1000 ML 1,000 ML IV PRN (09:03)
[2017-09-13] MEDS ORDERED: (PENDING PHARMACY ID) (Metformin Hcl [Metformin Hcl Er] 500 MG) PO SCH (10:00)
[2017-09-13] MEDS ORDERED: (PENDING PHARMACY ID) (Multivitamin [Multivitamins] 1 CAP) PO SCH (10:00)
--- NOTE | 2017-09-13 10:44 | PDOC PROGRESS REPORT ---
Subjective Progress Note for:: 09/13/17 Subjective:: I seen patient resting in bed comfortably. No new complaints or any significant change overnight. Patient is hemodynamically stable and good for discharge with placement is an issue since no family member wanted to accepted him. Reason For Visit: ALTERED MENTAL STATUS Physical Exam Vital Signs: Temp Pulse Resp BP Pulse Ox 98.0 F 54 L 18 104/83 99 09/13/17 08:00 09/13/17 08:00 09/13/17 08:00 09/13/17 08:00 09/13/17 08:00 Intake & Output 09/12/17 09/13/17 09/14/17 06:59 06:59 06:59 Intake Total 2251 2710 Output Total 200 Balance 2251 2710 -200 Weight 59.4 kg 64.9 kg General appearance: PRESENT: no acute distress, mild distress Head exam: PRESENT: atraumatic, normocephalic Neck exam: ABSENT: carotid bruit, JVD, lymphadenopathy, thyromegaly Respiratory exam: PRESENT: accessory muscle use Cardiovascular exam: PRESENT: RRR. ABSENT: diastolic murmur, rubs, systolic murmur GI/Abdominal exam: PRESENT: normal bowel sounds, soft. ABSENT: distended, guarding, mass, organolmegaly, rebound, tenderness Neurological exam: PRESENT: alert, awake Results Laboratory Results: 09/13/17 03:50 09/13/17 03:50 Sodium 144.2 Potassium 4.1 Chloride 112 H Carbon Dioxide 24 Anion Gap 8 BUN 26 H Creatinine 0.65 Est GFR ( Amer) > 60 Est GFR (Non-Af Amer) > 60 Glucose 88 Calcium 8.6 Magnesium 1.8 Impressions: Chest X-Ray 09/10/17 15:51 IMPRESSION: NO ACUTE RADIOGRAPHIC FINDING IN THE CHEST. Head CT 09/10/17 15:51 IMPRESSION: CHRONIC CHANGES OF ATROPHY AND MICROVASCULAR ISCHEMIA. Question normal pressure hydrocephalus. NO ACUTE PROCESS. EVIDENCE OF ACUTE STROKE: NO. Assessment & Plan - Diagnosis (1) Altered mental status Qualifiers: Altered mental status type: disorientation Qualified Code(s): R41.0 - Disorientation, unspecified Is this a current diagnosis for this admission?: Yes Plan: Possibly due to metabolic encephalopathy. Patient is currently stable and is at his baseline (2) Type 2 diabetes mellitus Is this a current diagnosis for this admission?: Yes Plan: Controlled. I restarted him his home metformin (3) Hypertension Is this a current diagnosis for this admission?: Yes Plan: Continue home meds. (4) History of CVA (cerebrovascular accident) Is this a current diagnosis for this admission?: Yes Plan: Stable.
--- NOTE | 2017-09-13 15:05 | RADIOLOGY REPORT (SQ) ---
EXAM DESCRIPTION: CAROTID DOPPLER COMPLETED DATE/TIME: 09/13/2017 2:32 pm REASON FOR STUDY: AMS E11.311 TYPE 2 DIABETES W UNSP DIABETIC RETINOPATHY W MACULA COMPARISON: None. TECHNIQUE: Grayscale ultrasound, Doppler velocity and spectra, and color Doppler images acquired of the extra-cranial carotid and vertebral arteries. Images stored on PACS. LIMITATIONS: None. FINDINGS: RIGHT CAROTID CCA Velocities: 66 centimeters/second ICA Velocities Peak systolic 86 cm/s. End diastolic 18 cm/s. Proximal ICA/CCA peak systolic ratio 1.3. Plaque is present in the distal common carotid and in the carotid bulb and proximal internal carotid. Intimal thickening is present in the common carotid. LEFT CAROTID CCA Velocities: 83 centimeters/second ICA Velocities Peak systolic 97 cm/s. End diastolic 22 cm/s. Proximal ICA/CCA peak systolic ratio 1.2. Plaque is present in the common carotid, carotid bulb, and proximal internal carotid. Intimal thicke flo is present in the common carotid. VERTEBRAL ARTERIES: Antegrade flow. Normal waveforms. SUBCLAVIAN ARTERIES: No finding. OTHER: No other significant finding. IMPRESSION: NO HEMODYNAMICALLY SIGNIFICANT STENOSIS. COMMENT: Quality ID #[id number]: Velocity criteria are extrapolated from the diameter data as defined by t he Society of Radiologists in Ultrasound Consensus Conference. Radiology 2003: 229; 340-346. TECHNICAL DOCUMENTATION: JOB ID: [id number] [employer]- All Rights Reserved Reading location - IP/workstation name: [email or web address]
[2017-09-13] MEDS: ATORVASTATIN CALCIUM 40 MG TABLET PO SCH (21:51)
[2017-09-13] MEDS: TAMSULOSIN HCL 0.4 MG CAP.SR.24H PO SCH (21:51)
[2017-09-14] MEDS: HEPARIN SOD (PORCINE) 5,000 UNIT/ML 1 ML SYRINGE SUBCUT SCH ×3 (05:45→21:14)
[2017-09-14] MEDS: LANSOPRAZOLE 15 MG TAB.RAP.DR PO SCH ×2 (05:45→16:29)
--- NOTE | 2017-09-14 08:54 | ST Inp Modified Barium Swallow ---
Medical Diagnosis - Medical Diagnoses Medical Diagnosis Description & ICD-10 Code(s): acute encephalopathy, dysphagia (R13.10) [place] [facility] [place]: 09/14/17 Date of Onset: 09/10/17 - History -: Medical Medications: Medications Reviewed Allergies: No known allergies - Subjective Current Nutritional Means: PO Current PO Diet: Mechanical- ground, Thickened liquids - nectar thick Current Symptoms: Coughing Pain: Patient reports, 0/5 - Objective Assessment: Upright, Left Lateral - Food Trials Food Trials Used: Honey-thickened liquids, [place] thick liquids, Pureed, Regular The Patient: Required Assist, fed by ST, via spoon, via straw - Assessment Labial Function: Within Normal Limits Lingual Function: Within Normal Limits Mandibular Function: Impaired - had difficulty taking a bite from abdiel cracker. Broke of small piece for patient. Minimal chewing. Laryngeal Function: Volitional Swallow, Weak Cough - Pharyngeal Stage Initiation of Pharyngeal Stage: Delayed Decreased Laryngeal Elevation: Yes - mild Reduced Velo-Pharyngeal Closure: no Reduced Pressure Generation: Yes - mild Reduced Tongue Base Retraction: Yes - mild Pre-Swallowing Pooling in Valleculae: Moderate - with honey thick liquid Pre-Swallowing Pooling in Pyriforms: Moderate - with honey thick liquid Reduced Thyro-Hyiod Approximation: Yes - mild Reduced Epiglottic Excursion: No Reduced Pharyngeal Peristalsis: No Multiple Swallows With: Cleared w/ Dry Swallow Post Swallow Residuals in Valleculae: Mild Post Swallow Residuals in Pyriforms: Mild Post Swallow Residuals: throughout pharynx - Esophageal Stage Cricophageal Function: Normal Upper Esophageal Transit: Normal Esophageal Stasis/Dysmotility: No Cervical Osteophytes Noted: No - Impression/Summary Laryngeal Penetration: Yes - with nectar thick only, Deep - to vocal cords, Silent - unclear if patient also aspirated as patient's shoulder blocked view despite multiple attempts to reposition. Patient at high risk for aspiration as he did not have a reflexive cough or secondary swallow, Cleared - with cued cough and cued seconday swallow, during swallow, after swallow Effective Clearing: yes - with cues - however, patient unlikely to clear penetration spontaneously. High risk for aspiration with nectar thick liquid Effective Compensatory Strategies: throat clear & reswallow - when cued Patient Presents With: Pharyngeal stage dysph., Mild-Moderate - moderate Risk of Aspiration: Moderate Risk of Nutritional Compromise: Moderate - Recommendations NPO: no Solid Diet Recommendations: Mechanical Soft, Ground Meat Liquid Diet Recommendations: Honey-Thick Strict Aspitarion Precautions: Yes Dysphagia Therapy with CUSTOMER SUCCESS ASSOCIATE: Yes Recommended Techniques: Fully Upright During Meal, Med Crushed in Applesauce, Small Bites and Sips - Time Total Time: 25 Total Timed Minutes: 25
[2017-09-14] MEDS: MULTIVITAMIN TABLET PO SCH (09:26)
[2017-09-14] MEDS: METFORMIN HCL 500 MG TABLET PO SCH ×2 (09:26→16:29)
[2017-09-14] MEDS: CHOLECALCIFEROL (D3) 1,000 UNIT TABLET PO SCH (09:26)
[2017-09-14] MEDS: ASPIRIN 81 MG TABLET, ENT COATED PO SCH (09:27)
[2017-09-14] MEDS: LISINOPRIL 5 MG TABLET PO SCH (09:27)
--- NOTE | 2017-09-14 11:39 | PDOC PROGRESS REPORT ---
Subjective Progress Note for:: 09/14/17 Subjective:: Patient seen and examined for his impaired. He is awake alert. She is not in pain or distress. He does not have new complaints. Reason For Visit: ALTERED MENTAL STATUS Physical Exam Vital Signs: Temp Pulse Resp BP Pulse Ox 98.2 F 56 L 16 121/59 L 100 09/14/17 07:26 09/14/17 07:26 09/14/17 07:26 09/14/17 07:26 09/14/17 07:26 Intake & Output 09/13/17 09/14/17 09/15/17 06:59 06:59 06:59 Intake Total 2710 2066 Output Total 200 Balance 2710 1866 Weight 64.9 kg 66.5 kg General appearance: PRESENT: no acute distress Neck exam: ABSENT: carotid bruit, JVD, lymphadenopathy, thyromegaly Respiratory exam: PRESENT: clear to auscultation earline. ABSENT: rales, rhonchi, wheezes Cardiovascular exam: PRESENT: RRR. ABSENT: diastolic murmur, rubs, systolic murmur GI/Abdominal exam: PRESENT: normal bowel sounds, soft. ABSENT: distended, guarding, mass, organolmegaly, rebound, tenderness Neurological exam: PRESENT: alert, awake Results Laboratory Results: 09/13/17 03:50 Impressions: Chest X-Ray 09/10/17 15:51 IMPRESSION: NO ACUTE RADIOGRAPHIC FINDING IN THE CHEST. Head CT 09/10/17 15:51 IMPRESSION: CHRONIC CHANGES OF ATROPHY AND MICROVASCULAR ISCHEMIA. Question normal pressure hydrocephalus. NO ACUTE PROCESS. EVIDENCE OF ACUTE STROKE: NO. Carotid Doppler Study 09/13/17 00:00 IMPRESSION: NO HEMODYNAMICALLY SIGNIFICANT STENOSIS. Assessment & Plan - Diagnosis (1) Altered mental status Qualifiers: Altered mental status type: disorientation Qualified Code(s): R41.0 - Disorientation, unspecified Is this a current diagnosis for this admission?: Yes Plan: Currently patient is at his baseline. (2) Type 2 diabetes mellitus Is this a current diagnosis for this admission?: Yes Plan: Controlled. I restarted him his home metformin (3) Hypertension Is this a current diagnosis for this admission?: Yes Plan: Continue home meds. (4) History of CVA (cerebrovascular accident) Is this a current diagnosis for this admission?: Yes Plan: Stable.
--- NOTE | 2017-09-14 14:02 | RADIOLOGY REPORT (SQ) ---
EXAM DESCRIPTION: COOKIE SWALLOW COMPLETED DATE/TIME: 09/14/2017 8:32 am REASON FOR STUDY: signs of aspiration E11.311 TYPE 2 DIABETES W UNSP DIABETIC RETINOPATHY W MACULA Dysphagia and coughing with meals COMPARISON: None. TECHNIQUE: Videofluoroscopic swallowing examination was performed in conjunction with speech patholo gy. Videofluoroscopic imaging was obtained and reviewed and these are the findings: RADIATION DOSE: 2 minutes 39 seconds of fluoroscopy was used. 1 images saved to PACS. LIMITATIONS: None FINDINGS: The patient was brought into the fluoro room and placed upright on a modified barium swall ow chair. The patient was then given multiple consistencies mixed with barium to swallow under live fluoroscopic video guidance. According to the Speech Pathologist there was laryngeal penetration and aspiration of nectar thick liquids. IMPRESSION: LARYNGEAL PENETRATION AND ASPIRATION OF NECTAR THICK LIQUIDS.PLEASE SEE SPEECH PATHOLOGI ST REPORT FOR OTHER FINDINGS AND RECOMMENDATIONS. COMMENT: Quality ID 145: Final reports for procedures using fluoroscopy that document radiation exp osure indices, or exposure time and number of fluorographic images (if radiation exposure indices are not available) TECHNICAL DOCUMENTATION: JOB ID: [id number] [employer]- All Rights Reserved Reading location - IP/workstation name: [email or web address]
[2017-09-14] MEDS: NORMAL SALINE 1000 ML 1,000 ML IV PRN (14:52)
--- NOTE | 2017-09-14 19:54 | XCELERA REPORT ---
[address] [address] Transthoracic Echocardiogram Report Name: KANNAN ODELL Age: 67 yrs Gender: Male : 1950 Patient Status: Inpatient Patient Location: [address] [place] [address] Study Date: 09/13/2017 09:51 AM Procedure: A two-dimensional transthoracic echocardiogram with color flow and Doppler was performed. The study was technically difficult with many images being suboptimal in quality. Reason For Study: Edema, palpitations History: Edema, palpitations. Ordering Physician: CHRISTIANO HANKINS Interpretation Summary The left ventricle is normal in size. There is normal left ventricular wall thickness. LV EF is 65% Left ventricular systolic function is normal. Doppler measurements suggest normal left ventricular diastolic function The left ventricular wall motion is normal. The right ventricle is not well visualized secondary to technical limitations Right atrium not well visualized secondary to technical limitations The left atrial size is normal. There is no evidence of mitral valve prolapse. There is no mitral valve stenosis. There is no mitral regurgitation noted. There is no aortic valve stenosis There is no LVOT obstruction. No aortic regurgitation is present. There is no tricuspid stenosis. No tricuspid regurgitation. Unable to calculate RVSP due to insufficient TR jet. There is no pericardial effusion. MMode/2D Measurements & Calculations RVDd: 3.0 cm LVIDd: 5.8 cm FS: 38.1 % IVSd: 0.87 cm LVIDs: 3.6 cm EDV(Teich): 165.5 ml LVPWd: 0.88 cm ESV(Teich): 53.7 ml EF(Teich): 67.6 % Doppler Measurements & Calculations MV E max gladis: MV dec slope: Ao V2 max: LV V1 max P.2 cm/sec 358.9 cm/sec2 147.1 cm/sec 6.1 mmHg MV A max gladis: MV dec time: Ao max PG: LV V1 max: 79.4 cm/sec 0.25 sec 8.7 mmHg 123.2 cm/sec MV E/A: 1.1 PA V2 max: 94.7 cm/sec PA max P.6 mmHg Left Ventricle The left ventricle is normal in size. There is normal left ventricular wall thickness. LV EF is 65%. Left ventricular systolic function is normal. Doppler measurements suggest normal left ventricular diastolic function. The left ventricular wall motion is normal. There is no thrombus. Right Ventricle The right ventricle is not well visualized secondary to technical limitations. Atria Right atrium not well visualized secondary to technical limitations. The left atrial size is normal. Mitral Valve There is no evidence of mitral valve prolapse. There is no vegetation seen on the mitral valve. There is no mitral valve stenosis. There is no mitral regurgitation noted. Aortic Valve There is no aortic valve stenosis. There is no LVOT obstruction. No aortic regurgitation is present. Tricuspid Valve There is no tricuspid stenosis. No tricuspid regurgitation. Unable to calculate RVSP due to insufficient TR jet. Pulmonic Valve There is no pulmonic valvular stenosis. There is no pulmonic valvular regurgitation. Great Vessels The aortic root is not well visualized. Effusions There is no pericardial effusion. : CHRISTIANO HANKINS > Stacey Acuna
[2017-09-14] MEDS: TAMSULOSIN HCL 0.4 MG CAP.SR.24H PO SCH (21:14)
[2017-09-14] MEDS: ATORVASTATIN CALCIUM 40 MG TABLET PO SCH (21:14)
[2017-09-15] MEDS: HEPARIN SOD (PORCINE) 5,000 UNIT/ML 1 ML SYRINGE SUBCUT SCH ×3 (05:24→23:10)
[2017-09-15] MEDS: LANSOPRAZOLE 15 MG TAB.RAP.DR PO SCH ×2 (06:11→16:34)
[2017-09-15] MEDS: METFORMIN HCL 500 MG TABLET PO SCH ×2 (08:43→16:34)
[2017-09-15] MEDS: ASPIRIN 81 MG TABLET, ENT COATED PO SCH (09:48)
[2017-09-15] MEDS: LISINOPRIL 5 MG TABLET PO SCH (09:49)
[2017-09-15] MEDS: MULTIVITAMIN TABLET PO SCH (09:49)
[2017-09-15] MEDS: CHOLECALCIFEROL (D3) 1,000 UNIT TABLET PO SCH (09:49)
--- NOTE | 2017-09-15 11:48 | PDOC PROGRESS REPORT ---
Subjective Progress Note for:: 09/15/17 Subjective:: No significant event overnight. Patient is awake alert. No new complaints. Reason For Visit: ALTERED MENTAL STATUS Physical Exam Vital Signs: Temp Pulse Resp BP Pulse Ox 98.6 F 63 13 113/57 L 100 09/15/17 08:00 09/15/17 08:00 09/15/17 08:00 09/15/17 08:00 09/15/17 08:00 Intake & Output 09/14/17 09/15/17 09/16/17 06:59 06:59 06:59 Intake Total 2066 2148 Output Total 200 Balance 1866 2148 Weight 66.5 kg 67.4 kg General appearance: PRESENT: no acute distress Head exam: PRESENT: atraumatic Mouth exam: PRESENT: moist Respiratory exam: PRESENT: clear to auscultation earline. ABSENT: rales, rhonchi, wheezes Cardiovascular exam: PRESENT: RRR. ABSENT: diastolic murmur, rubs, systolic murmur GI/Abdominal exam: PRESENT: normal bowel sounds, soft. ABSENT: distended, guarding, mass, organolmegaly, rebound, tenderness Neurological exam: PRESENT: alert, awake Results Laboratory Results: 09/13/17 03:50 Impressions: Chest X-Ray 09/10/17 15:51 IMPRESSION: NO ACUTE RADIOGRAPHIC FINDING IN THE CHEST. Head CT 09/10/17 15:51 IMPRESSION: CHRONIC CHANGES OF ATROPHY AND MICROVASCULAR ISCHEMIA. Question normal pressure hydrocephalus. NO ACUTE PROCESS. EVIDENCE OF ACUTE STROKE: NO. Carotid Doppler Study 09/13/17 00:00 IMPRESSION: NO HEMODYNAMICALLY SIGNIFICANT STENOSIS. Modified Barium Swallow 09/14/17 00:00 IMPRESSION: LARYNGEAL PENETRATION AND ASPIRATION OF NECTAR THICK LIQUIDS.PLEASE SEE SPEECH PATHOLOGIST REPORT FOR OTHER FINDINGS AND RECOMMENDATIONS. Assessment & Plan - Diagnosis (1) Altered mental status Qualifiers: Altered mental status type: disorientation Qualified Code(s): R41.0 - Disorientation, unspecified Is this a current diagnosis for this admission?: Yes Plan: Currently patient is at his baseline (2) Type 2 diabetes mellitus Is this a current diagnosis for this admission?: Yes Plan: Controlled. I restarted him his home metformin (3) Hypertension Is this a current diagnosis for this admission?: Yes Plan: Continue home meds. (4) History of CVA (cerebrovascular accident) Is this a current diagnosis for this admission?: Yes Plan: Stable.
[2017-09-15] MEDS: NORMAL SALINE 1000 ML 1,000 ML IV PRN (15:42)
[2017-09-15] MEDS: ATORVASTATIN CALCIUM 40 MG TABLET PO SCH (23:10)
[2017-09-15] MEDS: TAMSULOSIN HCL 0.4 MG CAP.SR.24H PO SCH (23:10)
[2017-09-16] MEDS: LANSOPRAZOLE 15 MG TAB.RAP.DR PO SCH ×2 (05:54→16:29)
[2017-09-16] MEDS: NORMAL SALINE 1000 ML 1,000 ML IV PRN ×2 (06:02→16:27)
[2017-09-16] MEDS: HEPARIN SOD (PORCINE) 5,000 UNIT/ML 1 ML SYRINGE SUBCUT SCH ×3 (06:02→21:40)
[2017-09-16] MEDS: METFORMIN HCL 500 MG TABLET PO SCH ×2 (10:59→16:29)
[2017-09-16] MEDS: CHOLECALCIFEROL (D3) 1,000 UNIT TABLET PO SCH (10:59)
[2017-09-16] MEDS: ASPIRIN 81 MG TABLET, ENT COATED PO SCH (11:00)
[2017-09-16] MEDS: MULTIVITAMIN TABLET PO SCH (11:01)
[2017-09-16] MEDS: LISINOPRIL 5 MG TABLET PO SCH (11:01)
--- NOTE | 2017-09-16 14:32 | PDOC PROGRESS REPORT ---
Subjective Subjective:: Patient is resting in bed. He is awake alert and responds appropriately. Patient had modified barium swallow and speech therapist concluded patient is high risk for aspiration with nectar thick liquid and recommended mechanical soft diet. Reason For Visit: ALTERED MENTAL STATUS Physical Exam Vital Signs: Temp Pulse Resp BP Pulse Ox 98.3 F 53 L 16 117/52 L 100 09/15/17 23:40 09/15/17 23:40 09/15/17 23:40 09/15/17 23:40 09/15/17 23:40 Intake & Output 09/15/17 09/16/17 09/17/17 06:59 06:59 06:59 Intake Total 2148 2256 Balance 214 2256 Weight 67.4 kg 67.9 kg General appearance: PRESENT: no acute distress Head exam: PRESENT: atraumatic Eye exam: PRESENT: conjunctiva pink Mouth exam: PRESENT: moist Neck exam: ABSENT: carotid bruit, JVD, lymphadenopathy, thyromegaly Respiratory exam: PRESENT: clear to auscultation earline. ABSENT: rales, rhonchi, wheezes Cardiovascular exam: PRESENT: RRR. ABSENT: diastolic murmur, rubs, systolic murmur GI/Abdominal exam: PRESENT: normal bowel sounds, soft. ABSENT: distended, guarding, mass, organolmegaly, rebound, tenderness Results Laboratory Results: 09/13/17 03:50 Impressions: Chest X-Ray 09/10/17 15:51 IMPRESSION: NO ACUTE RADIOGRAPHIC FINDING IN THE CHEST. Head CT 09/10/17 15:51 IMPRESSION: CHRONIC CHANGES OF ATROPHY AND MICROVASCULAR ISCHEMIA. Question normal pressure hydrocephalus. NO ACUTE PROCESS. EVIDENCE OF ACUTE STROKE: NO. Carotid Doppler Study 09/13/17 00:00 IMPRESSION: NO HEMODYNAMICALLY SIGNIFICANT STENOSIS. Modified Barium Swallow 09/14/17 00:00 IMPRESSION: LARYNGEAL PENETRATION AND ASPIRATION OF NECTAR THICK LIQUIDS.PLEASE SEE SPEECH PATHOLOGIST REPORT FOR OTHER FINDINGS AND RECOMMENDATIONS. Assessment & Plan - Diagnosis (1) Altered mental status Qualifiers: Altered mental status type: disorientation Qualified Code(s): R41.0 - Disorientation, unspecified Is this a current diagnosis for this admission?: Yes Plan: Currently patient is at his baseline (2) Type 2 diabetes mellitus Is this a current diagnosis for this admission?: Yes Plan: Controlled. I restarted him his home metformin (3) Hypertension Is this a current diagnosis for this admission?: Yes Plan: Continue home meds. (4) History of CVA (cerebrovascular accident) Is this a current diagnosis for this admission?: Yes Plan: Patient has a distant history of CVA while he was incarceration and has residual right-sided weakness. His echocardiogram reported as ejection fraction of 65%. Carotid Doppler is negative for stenosis.
[2017-09-16] MEDS: TAMSULOSIN HCL 0.4 MG CAP.SR.24H PO SCH (21:40)
[2017-09-16] MEDS: ATORVASTATIN CALCIUM 40 MG TABLET PO SCH (21:40)
[2017-09-17] MEDS: HEPARIN SOD (PORCINE) 5,000 UNIT/ML 1 ML SYRINGE SUBCUT SCH ×3 (05:44→23:53)
[2017-09-17] MEDS: NORMAL SALINE 1000 ML 1,000 ML IV PRN ×2 (05:44→17:50)
[2017-09-17] MEDS: LANSOPRAZOLE 15 MG TAB.RAP.DR PO SCH ×2 (05:44→17:51)
[2017-09-17] MEDS: ASPIRIN 81 MG TABLET, ENT COATED PO SCH (09:35)
[2017-09-17] MEDS: CHOLECALCIFEROL (D3) 1,000 UNIT TABLET PO SCH (09:35)
[2017-09-17] MEDS: METFORMIN HCL 500 MG TABLET PO SCH ×2 (09:35→17:51)
[2017-09-17] MEDS: MULTIVITAMIN TABLET PO SCH (09:36)
[2017-09-17] MEDS: LISINOPRIL 5 MG TABLET PO SCH (13:37)
--- NOTE | 2017-09-17 14:06 | PDOC PROGRESS REPORT ---
Subjective Progress Note for:: 09/17/17 Subjective:: This is 67 years old male patient admitted for altered mental status. Patient brought by EMS right away after he was released from retirement. Patient has also a recent history of cerebrovascular accident with right-sided weakness. Yesterday Patient had modified barium swallow and speech therapist concluded that he is high risk for aspiration with nectar thick liquid so recommended mechanical soft diet. Currently patient is at his baseline. Reason For Visit: ALTERED MENTAL STATUS Physical Exam Vital Signs: Temp Pulse Resp BP Pulse Ox 98.1 F 60 16 109/44 L 100 09/17/17 07:47 09/17/17 07:47 09/17/17 07:47 09/17/17 07:47 09/17/17 07:47 Intake & Output 09/16/17 09/17/17 09/18/17 06:59 06:59 06:59 Intake Total 2256 2343 Output Total 3 Balance 2256 2340 Weight 67.9 kg 69.5 kg General appearance: PRESENT: no acute distress Head exam: PRESENT: atraumatic Eye exam: PRESENT: conjunctiva pink Mouth exam: PRESENT: moist Neck exam: ABSENT: carotid bruit, JVD, lymphadenopathy, thyromegaly Respiratory exam: PRESENT: clear to auscultation earline. ABSENT: rales, rhonchi, wheezes Cardiovascular exam: PRESENT: RRR. ABSENT: diastolic murmur, rubs, systolic murmur GI/Abdominal exam: PRESENT: normal bowel sounds, soft. ABSENT: distended, guarding, mass, organolmegaly, rebound, tenderness Neurological exam: PRESENT: alert, awake Psychiatric exam: PRESENT: normal mood Results Laboratory Results: 09/13/17 03:50 Impressions: Chest X-Ray 09/10/17 15:51 IMPRESSION: NO ACUTE RADIOGRAPHIC FINDING IN THE CHEST. Head CT 09/10/17 15:51 IMPRESSION: CHRONIC CHANGES OF ATROPHY AND MICROVASCULAR ISCHEMIA. Question normal pressure hydrocephalus. NO ACUTE PROCESS. EVIDENCE OF ACUTE STROKE: NO. Carotid Doppler Study 09/13/17 00:00 IMPRESSION: NO HEMODYNAMICALLY SIGNIFICANT STENOSIS. Modified Barium Swallow 09/14/17 00:00 IMPRESSION: LARYNGEAL PENETRATION AND ASPIRATION OF NECTAR THICK LIQUIDS.PLEASE SEE SPEECH PATHOLOGIST REPORT FOR OTHER FINDINGS AND RECOMMENDATIONS. Assessment & Plan - Diagnosis (1) Altered mental status Qualifiers: Altered mental status type: disorientation Qualified Code(s): R41.0 - Disorientation, unspecified Is this a current diagnosis for this admission?: Yes Plan: Currently patient is at his baseline (2) Type 2 diabetes mellitus Is this a current diagnosis for this admission?: Yes Plan: Controlled. I restarted him his home metformin (3) Hypertension Is this a current diagnosis for this admission?: Yes Plan: Continue home meds. (4) History of CVA (cerebrovascular accident) Is this a current diagnosis for this admission?: Yes Plan: Patient has a distant history of CVA while he was incarceration and has residual right-sided weakness. His echocardiogram reported as ejection fraction of 65%. Carotid Doppler is negative for stenosis.
[2017-09-18] MEDS: TAMSULOSIN HCL 0.4 MG CAP.SR.24H PO SCH ×2 (00:01→22:08)
[2017-09-18] MEDS: ATORVASTATIN CALCIUM 40 MG TABLET PO SCH ×2 (00:01→22:08)
[2017-09-18] MEDS: HEPARIN SOD (PORCINE) 5,000 UNIT/ML 1 ML SYRINGE SUBCUT SCH ×3 (06:05→21:51)
[2017-09-18] MEDS: LANSOPRAZOLE 15 MG TAB.RAP.DR PO SCH ×2 (06:05→16:38)
[2017-09-18] MEDS: NORMAL SALINE 1000 ML 1,000 ML IV PRN (06:06)
[2017-09-18] MEDS: METFORMIN HCL 500 MG TABLET PO SCH ×2 (08:31→16:38)
[2017-09-18] MEDS: LISINOPRIL 5 MG TABLET PO SCH (09:32)
[2017-09-18] MEDS: CHOLECALCIFEROL (D3) 1,000 UNIT TABLET PO SCH (09:32)
[2017-09-18] MEDS: MULTIVITAMIN TABLET PO SCH (09:32)
[2017-09-18] MEDS: ASPIRIN 81 MG TABLET, ENT COATED PO SCH (09:32)
--- NOTE | 2017-09-18 13:30 | PDOC PROGRESS REPORT ---
Subjective Progress Note for:: 09/18/17 Subjective:: The patient denies any new complaints. He is resting comfortably. Reason For Visit: ALTERED MENTAL STATUS Physical Exam Vital Signs: Temp Pulse Resp BP Pulse Ox 97.7 F 59 L 16 125/55 L 100 09/18/17 12:24 09/18/17 12:24 09/18/17 12:24 09/18/17 12:24 09/18/17 12:24 Intake & Output 09/17/17 09/18/17 09/19/17 06:59 06:59 06:59 Intake Total 2343 1815 Output Total 3 Balance 2340 1815 Weight 69.5 kg General appearance: PRESENT: no acute distress, other - The patient appears chronically ill. Head exam: PRESENT: atraumatic, normocephalic Eye exam: PRESENT: conjunctiva pink, PERRLA, other - Dysconjugate gaze. ABSENT : scleral icterus Ear exam: PRESENT: normal external ear exam Mouth exam: PRESENT: moist, neck supple, tongue midline Neck exam: ABSENT: carotid bruit, JVD, lymphadenopathy, thyromegaly Respiratory exam: PRESENT: other - No increased work of breathing. No wheezes, rales, or rhonchbi. Not tactile fremitus.. ABSENT: rales, rhonchi, wheezes Cardiovascular exam: PRESENT: RRR, other - No lateral PMI. No thrills.. ABSENT : diastolic murmur, rubs, systolic murmur Pulses: PRESENT: other - Diminished distal pulses. Vascular exam: PRESENT: normal capillary refill GI/Abdominal exam: PRESENT: normal bowel sounds, soft. ABSENT: distended, guarding, hernia, mass, organolmegaly, rebound, tenderness Rectal exam: PRESENT: deferred Extremities exam: PRESENT: full ROM. ABSENT: calf tenderness, clubbing, pedal edema Neurological exam: PRESENT: alert, awake, oriented to person, oriented to place , oriented to time, oriented to situation, CN II-XII grossly intact, other - Right hemiplegia. ABSENT: motor sensory deficit Psychiatric exam: PRESENT: appropriate affect, normal mood. ABSENT: homicidal ideation, suicidal ideation Skin exam: PRESENT: dry, intact, warm. ABSENT: cyanosis, rash Results Laboratory Results: 09/13/17 03:50 Impressions: Chest X-Ray 09/10/17 15:51 IMPRESSION: NO ACUTE RADIOGRAPHIC FINDING IN THE CHEST. Head CT 09/10/17 15:51 IMPRESSION: CHRONIC CHANGES OF ATROPHY AND MICROVASCULAR ISCHEMIA. Question normal pressure hydrocephalus. NO ACUTE PROCESS. EVIDENCE OF ACUTE STROKE: NO. Carotid Doppler Study 09/13/17 00:00 IMPRESSION: NO HEMODYNAMICALLY SIGNIFICANT STENOSIS. Modified Barium Swallow 09/14/17 00:00 IMPRESSION: LARYNGEAL PENETRATION AND ASPIRATION OF NECTAR THICK LIQUIDS.PLEASE SEE SPEECH PATHOLOGIST REPORT FOR OTHER FINDINGS AND RECOMMENDATIONS. Assessment & Plan - Diagnosis (1) Hemiplegia affecting right dominant side Qualifiers: Hemiplegia type: flaccid Hemiplegia etiology: late effect of cerebrovascular disease Cerebrovascular disease type: cerebral infarction Qualified Code(s): I69.351 - Hemiplegia and hemiparesis following cerebral infarction affecting right dominant side Is this a current diagnosis for this admission?: Yes Plan: PT eval and treat. (2) Acute encephalopathy Is this a current diagnosis for this admission?: Yes Plan: Resolved (3) Altered mental status Qualifiers: Altered mental status type: disorientation Qualified Code(s): R41.0 - Disorientation, unspecified Is this a current diagnosis for this admission?: Yes Plan: Resolved (4) Dehydration Is this a current diagnosis for this admission?: Yes Plan: Resolved (5) History of CVA (cerebrovascular accident) Is this a current diagnosis for this admission?: Yes Plan: Stroke work up negative. continue with ASA and statin as outpatient. (6) Hypertension Qualifiers: Hypertension type: essential hypertension Qualified Code(s): I10 - Essential (primary) hypertension Is this a current diagnosis for this admission?: Yes Plan: Continue antihypertensives. (7) Type 2 diabetes mellitus Qualifiers: Diabetes mellitus family mediator insulin use: without family mediator use Diabetes mellitus complication status: with circulatory complication Diabetes mellitus complication detail: with other circulatory complications Qualified Code(s): E11.59 - Type 2 diabetes mellitus with other circulatory complications Is this a current diagnosis for this admission?: Yes Plan: Diabetic diet. Antihyperglycemics. (8) Dysphagia Qualifiers: Dysphagia type: oropharyngeal phase Qualified Code(s): R13.12 - Dysphagia, oropharyngeal phase Is this a current diagnosis for this admission?: Yes Plan: Modified diet consistency as per [employer]. - Time Time Spent with patient: 15-24 minutes Medications reviewed and adjusted accordingly: Yes Anticipated discharge: SNF Within: within 24 hours
[2017-09-19] MEDS: HEPARIN SOD (PORCINE) 5,000 UNIT/ML 1 ML SYRINGE SUBCUT SCH ×2 (05:27→15:18)
[2017-09-19] MEDS: LANSOPRAZOLE 15 MG TAB.RAP.DR PO SCH (06:15)
[2017-09-19 07:10] LABS: ANION GAP 10 (5-19); BLOOD UREA NITROGEN 9 mg/dL (7-20); CALCIUM 8.2 mg/dL (8.4-10.2); CARBON DIOXIDE 23 mmol/L (22-30); CHLORIDE 114 mmol/L (98-107); GLUCOSE 75 mg/dL (75-110); POTASSIUM 3.7 mmol/L (3.6-5.0); SODIUM 146.8 mmol/L (137-145)
[2017-09-19] MEDS: METFORMIN HCL 500 MG TABLET PO SCH (10:05)
[2017-09-19] MEDS: ASPIRIN 81 MG TABLET, ENT COATED PO SCH (10:06)
[2017-09-19] MEDS: CHOLECALCIFEROL (D3) 1,000 UNIT TABLET PO SCH (10:06)
[2017-09-19] MEDS: LISINOPRIL 5 MG TABLET PO SCH (10:06)
[2017-09-19] MEDS: MULTIVITAMIN TABLET PO SCH (10:06)
--- NOTE | 2017-09-19 10:40 | PDOC TRANSFER SUMMARY ---
General Admission Date/PCP: 09/10/17 18:34 Resuscitation Status: Full Code - Transfer Diagnosis (1) Hemiplegia affecting right dominant side Is this a current diagnosis for this admission?: Yes (2) Acute encephalopathy Is this a current diagnosis for this admission?: Yes (3) Altered mental status Is this a current diagnosis for this admission?: Yes (4) Dehydration Is this a current diagnosis for this admission?: Yes (5) History of CVA (cerebrovascular accident) Is this a current diagnosis for this admission?: Yes (6) Hypertension Is this a current diagnosis for this admission?: Yes (7) Type 2 diabetes mellitus Is this a current diagnosis for this admission?: Yes (8) Dysphagia Is this a current diagnosis for this admission?: Yes - Transfer Medications Home Medications: Cholecalciferol (Vitamin D3) [Vitamin D3 1000 Unit Tablet] 1,000 unit PO DAILY 09/11/17 Lisinopril [Prinivil 5 mg Tablet] 5 mg PO DAILY 09/11/17 Metformin HCl [Metformin HCl ER] 500 mg PO DAILY 09/11/17 Multivitamin [Multivitamins] 1 cap PO DAILY 09/11/17 Omeprazole 20 mg PO BID 09/11/17 Tamsulosin HCl [Flomax 0.4 mg Cap.sr] 0.4 mg PO QHS 09/11/17 Transfer Medications: Current Medications Acetaminophen (Tylenol 325 Mg Tablet) 650 mg PO Q4HP PRN PRN Reason: Temp greater than 101F Stop: 10/10/17 18:18 Last Admin: 09/14/17 21:14 Dose: 650 mg Aspirin (Ecotrin 81 Mg Ec Tablet) 81 mg PO DAILY [facility] Stop: 10/11/17 09:59 Last Admin: 09/19/17 10:06 Dose: 81 mg Atorvastatin Calcium (Lipitor 40 Mg Tablet) 40 mg PO QHS [facility] Stop: 10/10/17 21:59 Last Admin: 09/18/17 22:08 Dose: Not Given Cholecalciferol (Vitamin D3 1000 Unit Tablet) 1,000 unit PO DAILY [facility] Stop: 10/13/17 09:59 Last Admin: 09/19/17 10:06 Dose: 1,000 unit Dextrose (Dextrose Inj 50% Syringe (25 Gm/50 Ml)) 12.5 gm IV PRN PRN; Protocol PRN Reason: FOR BG 50-69 IN ALERT PATIENT Stop: 10/11/17 01:16 Dextrose (Dextrose Inj 50% Syringe (25 Gm/50 Ml)) 25 gm IV PRN PRN; Protocol PRN Reason: See Label Comments Stop: 10/11/17 01:16 Glucagon (Glucagen Inj 1 Mg Vial) 1 mg SUBCUT PRN PRN; Protocol PRN Reason: Evaluate for BG < 70 Stop: 10/11/17 01:16 Glucose (Glutose 40% Gel 15 Gm Tube) 15 gm PO PRN PRN; Protocol PRN Reason: For BG 50-69 in Alert Patient Stop: 10/11/17 01:16 Glucose (Glutose 40% Gel 15 Gm Tube) 30 gm PO PRN PRN; Protocol PRN Reason: FOR BG < 50 IN ALERT PATIENT Stop: 10/11/17 01:16 Heparin Sodium (Porcine) (Heparin Inj 5,000 Units/Ml 1 Ml Syringe) 5,000 unit SUBCUT Q8 JIE Stop: 10/10/17 21:59 Last Admin: 09/19/17 05:27 Dose: Not Given Sodium Chloride (Nacl 0.9% 1000 Ml Iv Soln) 1,000 mls @ 83.3 mls/hr IV CONTINUOUS PRN PRN Reason: THIS MED IS NOT "PRN" Stop: 10/10/17 18:18 Last Admin: 09/18/17 06:06 Dose: 1,000 ml Insulin Human Lispro (Humalog Insulin 100 Unit/1 Ml 3 Ml Vial) 0 - 12 unit SUBCUT ACHSP PRN PRN Reason: Protocol Stop: 10/12/17 17:51 Last Admin: 09/12/17 18:04 Dose: 2 unit Lansoprazole (Prevacid 15 Mg Odt Tablet) 15 mg PO BID@0600,1700 [facility] Stop: 10/12/17 16:59 Last Admin: 09/19/17 06:15 Dose: Not Given Lisinopril (Prinivil 5 Mg Tablet) 5 mg PO DAILY [facility] Stop: 10/13/17 09:59 Last Admin: 09/19/17 10:06 Dose: 5 mg Metformin HCl (Glucophage 500 Mg Tablet) 250 mg PO BIDBS [facility] Stop: 10/12/17 16:59 Last Admin: 09/19/17 10:05 Dose: 250 mg Multivitamins (Tab-A-Amarjit (Multiple Vitamin) Tablet) 1 tab PO DAILY [facility] Stop: 10/13/17 09:59 Last Admin: 09/19/17 10:06 Dose: 1 tab Sodium Chloride (Saline Flush 2.5 Ml Monoject Prefil Syrin) 2.5 ml IV Q8 JIE Stop: 10/10/17 21:59 Last Admin: 09/19/17 05:27 Dose: Not Given Tamsulosin HCl (Flomax 0.4 Mg Cap.Sr) 0.4 mg PO QHS [facility] Stop: 10/12/17 21:59 Last Admin: 09/18/17 22:08 Dose: Not Given - Allergies Allergies/Adverse Reactions: No Known Allergies Allergy (Verified 03/29/15 01:00) - Diet/Activity Discharge Diet: Diabetic, Other (Comments) - Mechanical soft. Discharge Activity: Activity As Tolerated Hospital Course Hospital Course: The patient is a 67 yr old male who was recently released from retirement. Directly after release he was brought to the ED with altered mental status. In the ED he was found to be significantly dehydrated and to have hypernatremia. 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 He was also found to have dysphagia. He has undergone a stroke work up here that was negative. His glucoses have been managed. His fingersticks have run very close to normal and he has required very little correction insulin. His hypertension has been controlled. His encephalopathy has resolved and he is appropriate for discharge to SNF. Physical Exam Vital Signs: Temp Pulse Resp BP Pulse Ox 98.2 F 68 16 137/58 H 100 09/19/17 08:00 09/19/17 08:00 09/19/17 08:00 09/19/17 08:00 09/19/17 08:00 Intake & Output 09/18/17 09/19/17 09/20/17 06:59 06:59 06:59 Intake Total 1815 2150 Balance 1815 2150 Weight 68.4 kg General appearance: PRESENT: no acute distress, well-developed, well-nourished Head exam: PRESENT: atraumatic, normocephalic Eye exam: PRESENT: conjunctiva pink, PERRLA. ABSENT: scleral icterus Ear exam: PRESENT: normal external ear exam Mouth exam: PRESENT: moist, tongue midline Neck exam: ABSENT: carotid bruit, JVD, lymphadenopathy, thyromegaly Respiratory exam: PRESENT: other - No increased work of breathing. No wheezes, rales, or rhonchi. No tactile fremitus.. ABSENT: rales, rhonchi, wheezes Cardiovascular exam: PRESENT: RRR, other - No lateral PMI. No thrills.. ABSENT : diastolic murmur, rubs, systolic murmur Pulses: PRESENT: other - Dimished distal pulses. GI/Abdominal exam: PRESENT: normal bowel sounds, soft. ABSENT: distended, guarding, mass, organolmegaly, rebound, tenderness Rectal exam: PRESENT: deferred Extremities exam: ABSENT: calf tenderness, clubbing, pedal edema Neurological exam: PRESENT: alert, awake, oriented to person, oriented to place , oriented to time, oriented to situation, CN II-XII grossly intact, motor sensory deficit - Right sided hemiplegia Psychiatric exam: PRESENT: appropriate affect, normal mood. ABSENT: homicidal ideation, suicidal ideation Skin exam: PRESENT: dry, intact, warm. ABSENT: cyanosis, rash Results Laboratory Results: 09/19/17 06:28 09/19/17 06:28 Sodium 146.8 H Potassium 3.7 Chloride 114 H Carbon Dioxide 23 Anion Gap 10 BUN 9 Creatinine 0.60 Est GFR ( Amer) > 60 Est GFR (Non-Af Amer) > 60 Glucose 75 Calcium 8.2 L Impressions: Chest X-Ray 09/10/17 15:51 IMPRESSION: NO ACUTE RADIOGRAPHIC FINDING IN THE CHEST. Head CT 09/10/17 15:51 IMPRESSION: CHRONIC CHANGES OF ATROPHY AND MICROVASCULAR ISCHEMIA. Question normal pressure hydrocephalus. NO ACUTE PROCESS. EVIDENCE OF ACUTE STROKE: NO. Carotid Doppler Study 09/13/17 00:00 IMPRESSION: NO HEMODYNAMICALLY SIGNIFICANT STENOSIS. Modified Barium Swallow 09/14/17 00:00 IMPRESSION: LARYNGEAL PENETRATION AND ASPIRATION OF NECTAR THICK LIQUIDS.PLEASE SEE SPEECH PATHOLOGIST REPORT FOR OTHER FINDINGS AND RECOMMENDATIONS. Plan Discharge Plan: The patient will discharge to SNF today. Time Spent: Greater than 30 Minutes
[2017-09-19 14:39] VITALS: BP 137/58
== END 2017-09-19 16:39 | disposition short-term general hospital (02) ==
LOC: ER 15:35 → INTOOBSV 18:34 → EH 18:34 → 3N 20:01 → 4S 09-14 20:05
PROVIDERS: ADMIT Internal Medicine; ATTEND Internal Medicine
DX: I69.351 Hemiplegia and hemiparesis following cerebral infarction affecting right dominant side (principal); G93.40 Encephalopathy, unspecified; R41.0 Disorientation, unspecified; E86.0 Dehydration; R13.12 Dysphagia, oropharyngeal phase; E87.0 Hyperosmolality and hypernatremia; I10 Essential (primary) hypertension; R94.6 Abnormal results of thyroid function studies; E11.59 Type 2 diabetes mellitus with other circulatory complications; I25.10 Atherosclerotic heart disease of native coronary artery without angina pectoris; I25.2 Old myocardial infarction; Z95.5 Presence of coronary angioplasty implant and graft; Z85.828 Personal history of other malignant neoplasm of skin; Z74.01 Bed confinement status; Z79.899 Other long term (current) drug therapy; Z63.5 Disruption of family by separation and divorce; Z59.0 Homelessness
CPT/HCPCS: 93005; 99285; 51701; 36415 ×3; 84439; 82962 ×10; 80307 ×4; 82140; 82607; 83690; 83735 ×2; 84443; 85025; 85610; 80048 ×2; 80053; 81001; 84484; 84481; 83036; 93306; 93880; 71045; 74230; 70450; 93010; 97530 ×2; 97110 ×4; 97163; 92610; 92526 ×3; 92611; 97167; G0378 ×9; A9270 ×53; J1644 ×9; J3490 ×6; J7030 ×9; G8978; G8979; G8996; G8997; G8998; G8987; G8988; J1815